=== PATIENT | male | born 1960 | race Hispanic/Latino ===

== ENCOUNTER → 2020-01-04 08:33 | Outpatient (CLI) | payer MEDICARE, MEDICAID, SELFPAY ==
[2019-12-30 08:53] VITALS: BMI 26.6
[2020-01-04 09:06] LABS: Hematocrit 43.1 % (40-54); Mean Corp Hgb Conc 30.2 g/dL (32-36); Mean Corpuscular Hgb 26.5 pg (27.0-32.0); Mean Corpuscular Volume 87.8 fL (80-94); Mean Platelet Vol. 9.8 fl (6.2-12.0); Platelet Count 165 K/mm3 (150-450); RBC Distribution Width CV 16.2 % (11.6-14.6); RBC Distribution Width SD 52.2 fl (35.1-43.9); Red Blood Count 4.91 M/mm3 (4.6-6.2)
[2020-01-04 09:37] LABS: ALB/GLOB Ratio 0.6 RATIO (0.9-2.4); AST(SGOT) 18 U/L (15-37); Alanine Aminotransfer ALT/SGPT 13 U/L (16-61); Albumin, Serum 3.1 g/dL (3.2-5.0); Alkaline Phosphatase 76 U/L (45-117); Anion Gap 8 (5-15); BUN 34 mg/dL (7-18); BUN/Creat Ratio 5.3 RATIO (10-20); Calcium,Total 8.6 mg/dL (8.5-10.1); Chloride 105 mmol/L (98-107); Creatinine, Serum 6.36 mg/dL (0.70-1.30); EST Glomerular Filtration Rate 10 mL/min (>60); Est Glom Filt Rate - Afr Amer 12 mL/min (>60); Globulin 5.3 g/dL (2.2-4.2); Glucose 103 mg/dL (74-106); Potassium 5.2 mmol/L (3.5-5.1); Protein, Total 8.4 g/dL (6.4-8.2); Sodium Level 137 mmol/L (136-145)
== END ==
PROVIDERS: PCP Internal Medicine; Referring Provider Surgery; Visit Provider Surgery
DX: Z01.812 Encounter for preprocedural laboratory examination (principal)
CPT/HCPCS: 36415; 80053; 85027

== ENCOUNTER 2020-01-11 06:10 | Day surgery (SDC) | payer MEDICARE, MEDICAID, SELFPAY ==
[2019-12-30 08:53] VITALS: BMI 26.6
[2020-01-10 13:22] VITALS: BMI 26.5
--- NOTE | 2020-01-11 07:30 | HP.PCM_ITS ---
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: No Is patient in pain?: No Allergies heparin Allergy (Mild, Verified 12/30/19 08:54) unknown tape Adverse Reaction (Uncoded 08/01/15 10:54) blister Medications Amlodipine [Norvasc] 10 mg PO QHS 01/15/13 [History Confirmed 12/30/19] Aspirin [Aspirin, Baby] 81 mg PO DAILY@0800 01/15/13 [History Confirmed 12/30/19] Carvedilol [Coreg (Beta Patrice)] 12.5 mg PO BID 01/15/13 [History Confirmed 12/30/19] Insulin Aspart [Novolog Flexpen] See Protocol SC TIDCM 01/15/13 [History Confirmed 12/30/19] Clopidogrel Bisulfate [Plavix] 75 mg PO DAILY 10/13/13 [History Confirmed 12/30/19] Gabapentin [Neurontin] 300 mg PO DAILY 07/27/15 [History Confirmed 12/30/19] Levothyroxine [Synthroid] 137 mcg PO DAILY 07/27/15 [History Confirmed 12/30/19] Ammonium Lactate [Amlactin] 1 applic TOPICAL UD PRN 01/29/16 [History Confirmed 12/30/19] B Complex W-C No.20/Folic Acid [Nephrocaps Softgel] 1 mg PO DAILY 01/29/16 [History Confirmed 12/30/19] Calcium Acetate [Phoslo Gel Cap] 1,334 mg PO TIDCM 01/29/16 [History Confirmed 12/30/19] Methylphenidate HCl [Methylphenidate HCl ER] 10 mg PO TID 01/29/16 [History Confirmed 12/30/19] Triphrocaps 1 cap PO DAILY 01/29/16 [History Confirmed 12/30/19] Lactobacillus acidophilus 10 mg PO DAILY 12/30/19 [History Confirmed 12/30/19] atorvastatin 10 mg tablet 40 mg PO QHS tab 12/30/19 [History Confirmed 12/30/19] minoxidil 2.5 mg tablet 2.5 mg PO BID 12/30/19 [History Confirmed 12/30/19] paroxetine HCl 10 mg tablet 10 mg PO DAILY 12/30/19 [History Confirmed 12/30/19] [facility] Medical History (Updated 12/30/19 @ 08:50 by Reena Alberto) Sleep apnea (Acute) Osteoarthritis (Acute) Anxiety and depression (Acute) Myocardial infarction (Acute) ESRD (end stage renal disease) on dialysis (Chronic) Hypertension (Acute) Diabetes mellitus (Acute) Kidney transplant failure and rejection (Chronic) Shortness of breath (Acute) Surgical History (Updated 12/30/19 @ 08:51 by Reena Alberto) History of angioplasty of peripheral vessel (Acute) History of arteriovenostomy for renal dialysis (Acute) History of craniotomy (Acute) Family History (Updated 12/30/19 @ 08:52 by Reena Alberto) Father Diabetes Heart disease Kidney disease Hypertension Mother CVA (cerebral vascular accident) Hypertension Diabetes Social History (Updated 01/03/20 @ 09:20 by Cierra IZAGUIRRE PAKeoC) Smoking Status: Former smoker HPI HPI HPI: HOUSTON ORNELAS, is a 59 M who presents to the office today for HPI HPI HPI: HOUSTON ORNELAS, is a 59 M who presents to the office today for increased post-treatment bleeding times. Patient states for the last two weeks he has had to hold pressure for an hour or greater following treatment. Patient denies pain at the fistula site. Patient's last intervention was by Dr. Meyer on 04/04/2016. A Right arm fistulogram ultrasound-guided access, selective catheterization of the inferior vena cava, percutaneous transluminal angioplasty of innominate vein stenosis with 12 mm balloon. Findings included Patent fistula, high-grade greater than 80% stenosis at the junction of the right innominate and superior vena cava. The axillary subclavian vein is widely patent as is the superior vena cava. The main body of the fistula was patent. Per patient's documents, consideration to place a graft was placed on hold due to patient's fistula was cannulating well at dialysis. Patient's last visit with Dr. Meyer was approximately 3 years ago. Patient's dialyzes at [place] [facility]. ROS General General: Yes fatigue; no weight change, appetite, colon cancer, breast cancer or weakness HEENT HEENT: Yes eye injury; no difficulty swallowing, eye surgery, swollen glands or hoarseness Endo Endocrine: Yes diabetes mellitus; no thyroid disease, thyroid cancer, Hair loss, heat intolerance or cold intolerance Musc Musculoskeletal: Yes arthritis; no back problems, rheumatoid arthritis, gout or joint pain Cardio Cardiovascular: Yes high blood pressure and heart attack; no murmur, pacemaker, heart disease, atrial fibrillation, heart stent, palpitations, shortness of breat with exertion or chest pain Psych Psychiatric: Yes depression and anxiety; no hearing voices Resp Respiratory: No shortness of breath, Yes sleep apnea, No cough, No COPD, No asthma, No emphysema, No wheezing Gastro Gastrointestinal: No abdominal pain, No nausea or vomiting, No diarrhea, Yes constipation, No blood in stool, No acid reflux, No hemorrhoids, No ulcers, No gallbladder problem, No black,tarry stools [place] Hematologic: Yes blood thinners, No blood disorders, Yes bleeding, No anemia, No blood clots Neuro Neurologic: No weakness Exam Const General: cooperative, healthy appearing, no acute distress [facility] Head: normal to inspection Eyes General: appearance normal, both eyes and all related structures Neck Neck: normal visual inspection Neck mass: No Resp Effort & Inspection: normal respiratory effort Auscultation: clear to auscultation bilaterally Cardio Rate: regular rate Rhythm: regular rhythm Heart Sounds: no murmurs GI Inspection: normal to inspection Palpation: soft Auscultation: normal bowel sounds Skin General: no rashes or lesions noted Lesions: no lesions Neuro General: no focal motor deficits, CN's II-XI intact bilaterally Extrem General: normal to inspection Other: Right upper extremity- excellent pulse, bruit and thrill. Random button holes. Skin seems to be thin over the needle sites. Psych Appearance: grossly normal Affect: normal affect Assessment & Plan Problems 1. ESRD (end stage renal disease) on dialysis N18.6; Z99.[address] Valenzuela will plan to perform a right upper extremity fistulogram. Procedure details, risks and benefits have been reviewed with the patient. Patient has had the opportunity to ask and have questions answered. Patient verbally understands and agrees with the plan. He is on Plavix and aspirin. He may continue aspirin. Stop Plavix 2 days prior to the procedure. Coding Level of Care Code Off vis,new,level 2 Diagnoses ESRD (end stage renal disease) on dialysis N18.6; Z99.2 I have re-examined the patient. There are no clinical changes since date of exam. Procedure Criteria Procedure Type: Elective COVID Risk Discussion: The surgeon/proceduralist and patient have discussed in detail the risk of exposure to and/or potential harm posed by the COVID-19 virus with having a surgery/procedure at this time versus the risk of delaying the surgery/procedure. It is not possible to know either the risk of delaying the surgery or procedure or chance of getting an infection with perfect accuracy, but a joint decision was made between the patient and the surgeon/proceduralist to proceed at this time with the scheduled surgery/procedure as indicated on the consent form.
--- NOTE | 2020-01-11 08:52 | OP.PCM_ITS ---
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 59-year-old gentleman was taken to the special procedures lab placed upon the table the right upper extremity was sterilely prepped he received 50 mcg of fentanyl and 1 mg of Versed is intravenous sedation. 2% lidocaine was instilled closer to the antecubital space antegrade with flow. Micropuncture needle inserted micropuncture wire inserted 6 Luxembourger short sheath that was inserted. The patient is intolerant to heparin so saline flushes were copiously was used to keep the sheath clear. 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 Initially I tried a combination of an 035 angled Glidewire and a 035 quick cross catheter. I could not get access through so then I switched out to a 5 Luxem[place] Kumpe catheter. I used a combination of 035 angled Glidewire and then a stiff angled Glidewire and then a pilot plant research technician wire and finally a command wire. Despite all combinations I was not able to get access past the area of SVC occlusion. That point then I aborted the procedure. The sheath was removed U suture 4-0 nylon was placed he tolerated the procedure well there is no apparent complication. Images demonstrate a transposed right extremity basilic vein to brachial artery AV fistula. There is tortuosity and increased collateral flow throughout the right upper arm. 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 My recommendations or plan for the patient are for tertiary referral. It is possible that through the arm they could get a better approach in axis or possibly even via the right internal jugular vein a better approach. Alverto Valenzuela M.D., F.A.C.S. Type of Anesthesia:: IV Sedation
== END 2020-01-11 09:50 | disposition home or self-care (01) ==
LOC: CLSP 06:11
PROVIDERS: PCP Internal Medicine; Referring Provider Surgery; Visit Provider Surgery
DX: T82.858A Stenosis of other vascular prosthetic devices, implants and grafts, initial encounter (principal); Z53.8 Procedure and treatment not carried out for other reasons; I12.0 Hypertensive chronic kidney disease with stage 5 chronic kidney disease or end stage renal disease; E11.22 Type 2 diabetes mellitus with diabetic chronic kidney disease; N18.6 End stage renal disease; M19.90 Unspecified osteoarthritis, unspecified site; I25.2 Old myocardial infarction; Z99.2 Dependence on renal dialysis; Z79.4 Long term (current) use of insulin; Z79.82 Long term (current) use of aspirin; Z79.02 Long term (current) use of antithrombotics/antiplatelets; Z79.899 Other long term (current) drug therapy
CPT/HCPCS: 36901; 99152; 99153; J7040; Q9967; C1751; C1769; C1887; C1894